=== PATIENT | female | born 1980 | race African-American/Black ===

== ENCOUNTER 2017-10-02 06:14 | Emergency (ER) | payer OTHER ==
[2017-10-02 07:37] LABS: BASO % 0.5 % (0.0-1.0); EOS % 0.2 % (0.0-3.0); HEMATOCRIT 43.2 % (36.0-47.0); HEMOGLOBIN 13.3 g/dl (12.0-15.5); IMMATURE GRANULOCYTE % 0.2 % (0-3.0); LYMPH # 1.4 10^3/uL (1.5-4.5); LYMPH % 34.5 % (24.0-44.0); MEAN CORPUSCULAR HEMOGLOBIN 23.2 pg (27.0-33.0); MEAN CORPUSCULAR HGB CONC 30.8 g/dl (32.0-36.5); MEAN CORPUSCULAR VOLUME 75.4 fl (80.0-96.0); MONO # 0.3 10^3/uL (0.0-0.8); MONO % 7.2 % (0.0-5.0); NEUTROPHILS # 2.3 10^3/uL (1.8-7.7); NEUTROPHILS % 57.4 % (36.0-66.0); PLATELET COUNT, AUTOMATED 276 10^3/uL (150-450); RED BLOOD COUNT 5.73 10^6/uL (4.00-5.40); RED CELL DISTRIBUTION WIDTH 14.2 % (11.5-14.5)
[2017-10-02] MEDS: NS 1,000 ML IV (07:39)
[2017-10-02] MEDS: KETOROLAC 30 MG/ML VIAL (J1885) IV (07:40)
[2017-10-02] MEDS: ONDANSETRON 4MG/2ML VIAL (J2405) IV (07:40)
[2017-10-02 07:41] LABS: KETONE, URINE AUTO RFX NEGATIVE (NEGATIVE); LEUKOCYTE ESTERASE UR AUTO RFX NEGATIVE (NEGATIVE); NITRITE, URINE AUTO RFX NEGATIVE (NEGATIVE); RBC, URINE AUTO RFX 2 /HPF (0-3); SPECIFIC GRAVITY UR AUTO RFX 1.017 (1.002-1.035); SQUAM EPITHELIAL CELL UR AURFX 1 /HPF (0-6); WBC, URINE AUTO RFX 1 /HPF (0-3)
[2017-10-02 08:00] LABS: ALBUMIN 4.1 GM/DL (3.2-5.2); ALBUMIN/GLOBULIN RATIO 1.17 (1.00-1.93); ALKALINE PHOSPHATASE 90 U/L (45-117); ALT/SGPT 20 U/L (12-78); ANION GAP 6 MEQ/L (8-16); AST/SGOT 13 U/L (7-37); BILIRUBIN,TOTAL 0.4 MG/DL (0.2-1.0); BLOOD UREA NITROGEN 10 MG/DL (7-18); CALCIUM LEVEL 8.9 MG/DL (8.5-10.1); CARBON DIOXIDE LEVEL 29 MEQ/L (21-32); CHLORIDE LEVEL 106 MEQ/L (98-107); CREATININE FOR GFR 0.96 MG/DL (0.55-1.30); GLOMERULAR FILTRATION RATE > 60.0 (>60); GLUCOSE, FASTING 87 MG/DL (70-100); LIPASE 109 U/L (73-393); POTASSIUM SERUM 4.1 MEQ/L (3.5-5.1); SODIUM LEVEL 141 MEQ/L (136-145); TOTAL PROTEIN 7.6 GM/DL (6.4-8.2)
[2017-10-02] MEDS: DOCUSATE SODIUM 100 MG CAP PO (09:31)
[2017-10-02] MEDS: NITROFURANTOIN (MACROBID) 100 MG CAP PO (09:31)
[2017-10-02] MEDS: METOCLOPRAMIDE 10 MG TAB PO (09:31)
== END 2017-10-02 09:35 | disposition home or self-care (01) ==
LOC: M ED 06:14
DX: N30.90 Cystitis, unspecified without hematuria (principal); K57.90 Diverticulosis of intestine, part unspecified, without perforation or abscess without bleeding; K59.00 Constipation, unspecified
CPT/HCPCS: J2405

== ENCOUNTER 2017-12-20 07:57 | Emergency (ER) | payer OTHER ==
[2017-12-20] MEDS: MECLIZINE 25 MG TABLET PO (08:42)
[2017-12-20 09:25] LABS: INFLUENZA A AMPLIFICATION NEGATIVE (NEGATIVE); INFLUENZA B AMPLIFICATION NEGATIVE (NEGATIVE); RSV AMPLIFICATION NEGATIVE (NEGATIVE)
[2017-12-20] MEDS: KETOROLAC 60 MG/2 ML VIAL (J1885) IM (10:18)
== END 2017-12-20 10:49 | disposition home or self-care (01) ==
LOC: M ED 07:57
DX: R51 Headache (principal); H93.19 Tinnitus, unspecified ear; R10.9 Unspecified abdominal pain
CPT/HCPCS: J1885

== ENCOUNTER 2018-09-10 15:23 | Emergency (ER) | payer OTHER ==
[~2018-09-10] VITALS: Ht 165.1 cm; Wt 135.0 kg
[~2018-09-10 15:23] MED LIST: COLA100C5 PO; MACR100C43 PO; NAPR-837 PO; REGL10TA6 PO; ZOFR4TAB14 PO
[2018-09-10] MEDS ORDERED: IBUP-1114 PO (15:30)
[2018-09-10] MEDS ORDERED: ACETAMINOPHEN TAB 650MG DOSE (2X325MG) PO ONE (17:30)
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
[2018-09-10] MEDS ORDERED: ROBA500T PO (19:53)
[2018-09-10 20:01] VITALS: BP 112/58
== END 2018-09-10 20:02 | disposition home or self-care (01) ==
LOC: M ED 17:39
DX: S16.1XXA Strain of muscle, fascia and tendon at neck level, initial encounter (principal); S29.012A Strain of muscle and tendon of back wall of thorax, initial encounter; V47.6XXA Car passenger injured in collision with fixed or stationary object in traffic accident, initial encounter; Y92.410 Unspecified street and highway as the place of occurrence of the external cause

== ENCOUNTER → 2019-11-10 | Outpatient (CLI) | payer OTHER ==
[~2019-11-10] MED LIST changes: +IBUP-1114 PO; +ROBA500T PO
--- NOTE | 2019-11-27 14:00 | REPMRS ---
Patient History The patient states she has not had a clinical breast exam in over a year. Family history of colorectal cancer at age 50 in maternal grandmother. No Hormone Replacement Therapy large scar that goes from the left axilla to the upper outer quadrent. Digital Woman Screen Mammo: November 10, 2019 - Exam #: [id number] Bilateral CC and MLO view(s) were taken. Technologist: Ami Morrow RT Prior study comparison: September 07, 2016, bilateral digital mammo screening bilat, performed at [place]. FINDINGS: There are scattered fibroglandular densities. The Volpara volumetric breast density category is:B. There is a stable contour deformity in the left breast from previous surgoical biopsy. There is a needle biopsy marker clip in the right breast. There has been no change in the appearance of the mammogram from the prior studies. There is a mild amount of scattered fibroglandular density which is fairly symmetric. There is no interval development of dominant mass, architectural distortion, or grouped microcalcification suggestive of malignancy. 3-D tomosynthesis shows no additional findings. Assessment: BI-RADS/ACR category 2 mammogram. Benign Findings. Recommendation Routine screening mammogram of both breasts in 1 year (for women over age 40). This patient's Lifetime Breast Cancer Risk is estimated at 8.9 %. This mammogram was interpreted with the aid of an FDA-approved computer-aided dectection system. Electronically Signed By: Junior Randolph MD 11/27/19 1400
== END ==
LOC: M WHC 13:51
PROVIDERS: ATTEND Physician Assistant
DX: Z12.31 Encounter for screening mammogram for malignant neoplasm of breast (principal); Z86.018 Personal history of other benign neoplasm; Z97.8 Presence of other specified devices

== ENCOUNTER → 2020-08-24 | Outpatient (CLI) | payer OTHER ==
[~2020-08-24] MED LIST changes: +OCEL3TAB PO; +PEPC1TAB5 PO; +VITA500C24 PO
--- NOTE | 2020-08-25 13:36 | REP ---
INDICATION: NONTOXIC DIFFUSE GOITER. COMPARISON: None. TECHNIQUE/RADIOTRACER AND DOSE: After the oral administration of 385 uCi of radio iodide 123 a thyroid scan and uptake was performed. FINDINGS: There is symmetric distribution of the radio iodide throughout the thyroid gland. No no abnormal hot or cold lesions are identified. There is no scintigraphic evidence of thyromegaly. The 24 hour uptake calculation is 41.69% IMPRESSION: Increased 24 hour uptake, as described above, and consistent with the patient's clinical diagnosis of hyperthyroidism. <Electronically signed by Allan Shahid > 08/25/20 [id number]
== END ==
LOC: M RAD 12:09
PROVIDERS: ATTEND Internal Medicine Endocrinology, Diabetes & Metabolism
DX: E04.0 Nontoxic diffuse goiter (principal)
CPT/HCPCS: 78012; A9516

== ENCOUNTER 2020-11-03 07:00 | Emergency (ER) | payer OTHER ==
[~2020-11-03] VITALS: Ht 165.1 cm; Wt 70.4 kg
[2020-11-03] MEDS ORDERED: NORCO, ANEXSIA 5/325MG TABLET (HYDROcodone/ACETAMINOPHEN) PO ONE (08:05)
[2020-11-03 08:38] LABS: BASO % 0.2 % (0.0-1.0); EOS % 0.2 % (0.0-3.0); HEMATOCRIT 39.1 % (36.0-47.0); LYMPH # 1.5 10^3/uL (1.5-5.0); MEAN CORPUSCULAR HEMOGLOBIN 23.5 pg (27.0-33.0); MEAN CORPUSCULAR HGB CONC 30.7 g/dl (32.0-36.5); MEAN CORPUSCULAR VOLUME 76.5 fl (80.0-96.0); MONO # 0.4 10^3/uL (0.0-0.8); MONO % 7.7 % (2.0-8.0); NEUTROPHILS # 2.8 10^3/uL (1.5-8.5); NEUTROPHILS % 59.7 % (36.0-66.0); PLATELET COUNT, AUTOMATED 259 10^3/uL (150-450); RED BLOOD COUNT 5.11 10^6/uL (4.00-5.40); WHITE BLOOD COUNT 4.7 10^3/uL (4.0-10.0)
[2020-11-03 09:14] LABS: ALBUMIN 3.3 GM/DL (3.2-5.2); ALT/SGPT 21 U/L (12-78); BILIRUBIN,DIRECT 0.1 MG/DL (0.0-0.2); BILIRUBIN,TOTAL 0.4 MG/DL (0.2-1.0); BLOOD UREA NITROGEN 11 MG/DL (7-18); CALCIUM LEVEL 9.1 MG/DL (8.5-10.1); CARBON DIOXIDE LEVEL 25 MEQ/L (21-32); CHLORIDE LEVEL 110 MEQ/L (98-107); CREATININE FOR GFR 0.95 MG/DL (0.55-1.30); GLOMERULAR FILTRATION RATE > 60.0 (>58); GLUCOSE, FASTING 87 MG/DL (70-100); LIPASE 82 U/L (73-393); POTASSIUM SERUM 4.3 MEQ/L (3.5-5.1); SODIUM LEVEL 138 MEQ/L (136-145); TOTAL PROTEIN 6.8 GM/DL (6.4-8.2)
[2020-11-03 09:17] LABS: ERYTHROCYTE SEDIMENTATION RATE 4 mm/hr (0-20)
[2020-11-03 09:27] LABS: HCG, SERUM QUALITATIVE NEGATIVE (NEGATIVE)
[2020-11-03] MEDS ORDERED: NS 1,000 ML IV ONE (09:40)
[2020-11-03] MEDS ORDERED: MORPHINE 4 MG/ML 1ML VIAL/SYRINGE (J2270) IV ONE (14:10)
--- NOTE | 2020-11-03 14:26 | REPVR ---
PROCEDURE INFORMATION: Exam: MR Thoracic Spine Without Contrast Exam date and time: 11/03/2020 1:30 PM Age: 40 years old Clinical indication: Pain in thoracic spine; Without myelpathy or radiculopathy; Patient HX: No rectal tone /back pain TECHNIQUE: Imaging protocol: Multiplanar magnetic resonance images of the thoracic spine without intravenous contrast. COMPARISON: CT Spine,thoracic w/o contrast 09/10/2018 6:34 PM FINDINGS: Vertebrae: Evaluation of the marrow demonstrates no evidence of acute fracture line, high-grade compression deformity, worrisome malalignment, or marrow edema. Minimal scoliosis is again appreciated. Few scattered hemangiomas are noted in the vertebral bodies. Spinal epidural space: No epidural fluid. No epidural fluid. Scratch that no paraspinal mass or hematoma. Spinal cord: No abnormal cord signal. T1-T2: No significant disc disease. No significant spinal canal stenosis. T2-T3: No significant disc disease. No significant spinal canal stenosis. T3-T4: No significant disc disease. No significant spinal canal stenosis. T4-T5: No significant disc disease. No significant spinal canal stenosis. T5-T6: No significant disc disease. No significant spinal canal stenosis. T6-T7: No significant disc disease. No significant spinal canal stenosis. T7-T8: No significant disc disease. No significant spinal canal stenosis. T8-T9: No significant disc disease. No significant spinal canal stenosis. T9-T10: No significant disc disease. No significant spinal canal stenosis. T10-T11: No significant disc disease. No significant spinal canal stenosis. T11-T12: No significant disc disease. No significant spinal canal stenosis. Soft tissues: No subcutaneous or other hematoma. Thyroid: The thyroid looks mildly heterogeneous and enlarged. It can be followed with ultrasound per clinical indications. Disc spaces: Disc heights and water content are well maintained. No focal disc herniation no significant central or foraminal encroachment is appreciated. IMPRESSION: 1. No acute or chronic fracture deformity and no worrisome malalignment. 2. No abnormal cord signal. 3. No epidural fluid or paraspinal hematoma. 4. No focal disc abnormality and no significant central or foraminal encroachment. Electronically signed by: Stu Wyatt On 11/03/2020 14:26:14 PM
[2020-11-03] MEDS ORDERED: LORazepam 2 MG/ML VIAL IV STA (16:03)
[2020-11-03] MEDS ORDERED: LORazepam 2 MG/ML VIAL As Ordered ONE (19:55)
--- NOTE | 2020-11-03 21:35 | REPVR ---
PROCEDURE INFORMATION: Exam: MR Lumbar Spine Without Contrast Exam date and time: 11/03/2020 9:01 PM Age: 40 years old Clinical indication: Low back pain; Patient HX: No rectal tone /back pain TECHNIQUE: Imaging protocol: Multiplanar magnetic resonance images of the lumbar spine without intravenous contrast. COMPARISON: CT Spine, lumbar w/o contrast 09/10/2018 6:34 PM FINDINGS: Vertebrae: Unremarkable. Spinal cord: Normal signal. No cord compression. L1-L2: No significant disc disease. No significant spinal canal stenosis. No neural foraminal stenosis. L2-L3: No significant disc disease. No significant spinal canal stenosis. No neural foraminal stenosis. L3-L4: No significant disc disease. No significant spinal canal stenosis. No neural foraminal stenosis. L4-L5: Unremarkable disc L4-L5. Mild bilateral facet joint arthropathy. L5-S1: Bulging annulus L5-S1 with a right paracentral disc protrusion mildly effacing the right side of the thecal sac and minimally impinging on the right S1 nerve root as it exits from the thecal sac. Mild bilateral facet joint arthropathy. Soft tissues: Unremarkable. IMPRESSION: Bulging annulus L5-S1 with a right paracentral disc protrusion mildly effacing the right side of the thecal sac and minimally impinging on the right S1 nerve root as it exits from the thecal sac. Mild bilateral facet joint arthropathy. Electronically signed by: David Heath On 11/03/2020 21:34:58 PM
[2020-11-03] MEDS ORDERED: PRED20TA PO (21:51)
[2020-11-03] MEDS ORDERED: TRAM50TA2 PO (21:51)
[2020-11-03] MEDS ORDERED: predniSONE 20 MG TAB PO ONE (21:55)
[2020-11-03 22:15] VITALS: BP 109/66
== END 2020-11-03 22:33 | disposition home or self-care (01) ==
LOC: M ED 07:00
DX: M51.26 Other intervertebral disc displacement, lumbar region (principal); S34.21XA Injury of nerve root of lumbar spine, initial encounter; X58.XXXA Exposure to other specified factors, initial encounter; Y92.9 Unspecified place or not applicable; Y93.9 Activity, unspecified; Y99.9 Unspecified external cause status; Z79.3 Long term (current) use of hormonal contraceptives
CPT/HCPCS: 72146; 72148; 80048; 80076; 81001; 83690; 84443; 84703; 85025; 85652; 86140; 96374; 96375; 99284; J2060; J2270